=== PATIENT | female | born 1975 | race Caucasian/White ===

== ENCOUNTER 2017-05-16 09:11 | Inpatient (IN) ==
[2017-05-16] MEDS ORDERED: ONDANSETRON 4 MG/2 ML VIAL IV PRN (13:06)
[2017-05-16 13:30] LABS: ABG Base Excess -11.4 MMOL/L (-2.5-2.5); ABG HCO3 15.4 MMOL/L (20-26); ABG Oxygen Saturation 91.7 % (95-100); ABG PO2 89.4 MM HG (80-95); ABG TCO2 21.7 MMOL/L (23-27)
[2017-05-16 13:32] LABS: ABG PCO2 89.1 MM HG (35-48); ABG PH 7.005 (7.35-7.45)
[2017-05-16] MEDS ORDERED: NOREPINEPHRINE 4 MG/4 ML VIAL IV ONE ×2 (14:06→19:14)
[2017-05-16] MEDS ORDERED: methylPREDNISolone SOD SUC 40 MG/1 ML VIAL ONE (14:21)
[2017-05-16] MEDS ORDERED: NOREPINEPHRINE 16 MG in SODIUM CHLORIDE 0.9% 242 ML IV SCH (14:30)
[2017-05-16] MEDS ORDERED: NOREPINEPHRINE 8 MG in SODIUM CHLORIDE 0.9% 242 ML IV SCH (14:30)
[2017-05-16] MEDS: methylPREDNISolone SOD SUC 40 MG/1 ML VIAL IV SCH ×2 (14:44→22:52)
[2017-05-16] MEDS: SODIUM CHLORIDE 0.9% 1,000 ML IV SCH (14:47)
[2017-05-16] MEDS: PROPOFOL 1,000 MG/100 ML BOTTLE IV SCH ×4 (14:47→23:52)
[2017-05-16] MEDS: PHENYLEPHRINE DRIP 40 MG/250 ML PREMIX IV SCH (14:50)
[2017-05-16 14:53] LABS: Basophils # 0.1 10*3/uL (0.0-0.2); Basophils % 0.3 % (0.0-0.8); Eosinophils # 0.1 10*3/uL (0.0-0.87); Eosinophils % 0.4 % (0.00-10.9); Hematocrit 36.2 VOL% (35.7-47.0); Hemoglobin 11.2 GM/DL (12.0-16.0); Immature Granulocytes % 7.8 %; Immature Granulocytes Absolute 2.91 #; Lymphocytes # 1.6 10*3/uL (1.4-4.0); Lymphocytes % 4.3 % (21.3-54.2); Mean Corpuscular HGB Conc 30.9 GM/DL (32-36); Mean Corpuscular Hemoglobin 26 PG (27-34); Mean Corpuscular Volume 84.8 FL (87-102); Mean Platelet Volume 10.3 FL (9.6-12.0); Monocytes # 1.2 10*3/uL (0.11-0.8); Monocytes % 3.3 % (1.7-12.7); NRBC # 0.78 10*3/uL; Neutrophils # 31.2 10*3/uL (1.4-7.4); Neutrophils % 83.9 % (38.7-73.9); Platelet Count 468 T/CUMM (130-400); Red Blood Count 4.27 MC/CUMM (3.8-5.5); Red Cell Distribution Width 17.7 % (9.3-17.3); White Blood Count 37.1 T/CUMM (4-12)
[2017-05-16] MEDS: PANTOPRAZOLE 40 MG VIAL IV SCH (15:04)
[2017-05-16 15:07] LABS: ABG HCO3 17.1 MMOL/L (20-26); ABG Oxygen Saturation 86.8 % (95-100); ABG PCO2 58.3 MM HG (35-48); ABG PO2 62.9 MM HG (80-95); ABG TCO2 19.2 MMOL/L (23-27)
[2017-05-16 15:09] LABS: ABG PH 7.155 (7.35-7.45)
[2017-05-16] MEDS ORDERED: SODIUM BICARBONATE 50 MEQ/50 ML SYRINGE IV ONE ×2 (15:13→15:32)
[2017-05-16 15:17] LABS: Band Neutrophils 7 % (0-10); Lymphocytes 3 % (20-55); Metamyelocytes 4 %; Myelocytes 1 %; Nucleated Red Blood Cells 1 (0-5); Segmented Neutrophils 83 % (50-85)
[2017-05-16 15:22] LABS: Albumin 2.1 G/DL (3.4-5.0); Bilirubin,Direct 1.33 MG/DL (0.0-0.20); Bilirubin,Indirect 0.7 MG/DL (0.0-1.0); Bilirubin,Total 1.9 MG/DL (0.2-1.0); Calcium 7.4 MG/DL (8.5-10.1); Total Protein 5.9 G/DL (6.4-8.3)
[2017-05-16 15:23] LABS: Osmolality,Calculated 292.7 MOS/KG (273-304); Potassium 5.4 MMOL/L (3.5-5.1)
[2017-05-16 15:25] LABS: CKMB % 8.4 %
[2017-05-16 15:28] LABS: Thyroid Stimulating Hormone 2.52 uIU/ml (0.358-3.74)
[2017-05-16] MEDS ORDERED: SODIUM BICARB INJ 100 MEQ in DEXTROSE 5% 1,000 ML IV SCH (15:30)
[2017-05-16 15:32] LABS: Troponin I Only 0.497 NG/ML (0.00-0.045)
[2017-05-16 15:33] LABS: Burr Cells Few
[2017-05-16 15:35] LABS: Polychromasia 1+; Target Cells Slight
[2017-05-16 15:36] LABS: Platelet Estimate Increased; Schistocytes Few
[2017-05-16 15:37] LABS: Total Cells Counted 100
[2017-05-16 16:28] LABS: ABG Base Excess -5.6 MMOL/L (-2.5-2.5); ABG HCO3 19.6 MMOL/L (20-26); ABG Oxygen Saturation 89.6 % (95-100); ABG PCO2 56.1 MM HG (35-48); ABG PH 7.217 (7.35-7.45); ABG PO2 65.6 MM HG (80-95); ABG TCO2 21.1 MMOL/L (23-27)
[2017-05-16] MEDS: ENOXAPARIN 40 MG/0.4 ML SYRINGE SUBCUT SCH (16:55)
[2017-05-16] MEDS: PIPERACILLIN/TAZOBACTAM 3,375 MG in SODIUM CHLORIDE 0.9% 100 ML IV SCH ×2 (16:56→22:49)
[2017-05-16 17:17] LABS: % Iron Saturation 42.1 % (18-50)
[2017-05-16 17:43] LABS: Folate 20.3 NG/ML (5.4-24.0)
[2017-05-16] MEDS: VANCOMYCIN INJ 2,000 MG in SODIUM CHLORIDE 0.9% 500 ML IV SCH (17:49)
[2017-05-16] MEDS: SODIUM BICARB INJ 100 MEQ in DEXTROSE 5% NACL 0.45% 1,000 ML IV SCH (17:49)
[2017-05-16] MEDS ORDERED: LEVOFLOXACIN INJ 750 MG in PREMIX 1 EACH IV SCH (18:00)
[2017-05-16 18:28] LABS: ABG Base Excess -7.5 MMOL/L (-2.5-2.5); ABG HCO3 18.2 MMOL/L (20-26); ABG Oxygen Saturation 89.4 % (95-100); ABG PCO2 54.2 MM HG (35-48); ABG TCO2 19.5 MMOL/L (23-27)
[2017-05-16 18:39] LABS: ABG PH 7.197 (7.35-7.45)
[2017-05-16 19:37] LABS: Apearance,Urine CLOUDY (Clear); Bacteria,Urine Few /HPF (Few); Bilirubin,Urine Negative (Negative); Blood, Urine Large mg/dL (Negative); Glucose,Urine (UA) 50 mg/dL (Negative); Ketones,Urine Negative (Negative); Nitrite,Urine Negative (Negative); Protein,Urine 100 MG/DL; RBC,Urine 760 /HPF (0-4); Urine Color Amber (Yellow); Urine Specific Gravity 1.018 (1.001-1.035); Urine Urobilinogen < 2.0 EU/DL (0.2-1.0); WBC,Urine 16 /HPF (0-6)
[2017-05-16] MEDS: NOREPINEPHRINE 16 MG in SODIUM CHLORIDE 0.9% 234 ML IV SCH (19:59)
[2017-05-16] MEDS ORDERED: SODIUM BICARBONATE 50 MEQ/50 ML VIAL IV ONE (20:53)
[2017-05-16] MEDS ORDERED: OSELTAMIVIR 75 MG CAPSULE NG SCH (21:00)
[2017-05-16 22:25] LABS: CKMB % 10.2 %
[2017-05-16 22:29] LABS: Troponin I Only 0.599 NG/ML (0.00-0.045)
[2017-05-16 23:40] LABS: Allen Test Positive; Pt O2 Delivery Device Ventilator
[2017-05-17] MEDS: NOREPINEPHRINE 16 MG in SODIUM CHLORIDE 0.9% 234 ML IV SCH ×3 (00:08→14:30)
[2017-05-17 00:09] LABS: ABG Base Excess -4.1 MMOL/L (-2.5-2.5); ABG HCO3 23.3 MMOL/L (20-26); ABG PCO2 53.5 MM HG (35-48); ABG PH 7.257 (7.35-7.45); ABG PO2 45.3 MM HG (80-95); ABG TCO2 24.9 MMOL/L (23-27)
[2017-05-17] MEDS: fentaNYL INJ 1,250 MCG in SODIUM CHLORIDE 0.9% 225 ML IV SCH ×4 (01:11→20:08)
[2017-05-17] MEDS ORDERED: VECURONIUM 10 MG VIAL IV SCH (01:32)
[2017-05-17] MEDS: PROPOFOL 1,000 MG/100 ML BOTTLE IV SCH ×13 (01:34→23:14)
[2017-05-17] MEDS: DEXTROSE 5% NACL 0.9% 1,000 ML IV SCH ×2 (01:39→15:21)
[2017-05-17] MEDS ORDERED: GLUCAGON 1 MG VIAL IM PRN (01:42)
[2017-05-17] MEDS ORDERED: DEXTROSE 50% 25 GM/50 ML VIAL IV PRN (01:42)
[2017-05-17] MEDS: INSULIN REGULAR 100 UNIT/ML SUBCUT SCH ×4 (01:56→17:10)
[2017-05-17 04:05] LABS: ABG Base Excess -5.2 MMOL/L (-2.5-2.5); ABG PCO2 49.2 MM HG (35-48); ABG PO2 69.5 MM HG (80-95); ABG TCO2 20.4 MMOL/L (23-27); Allen Test Positive; Pt O2 Delivery Device Ventilator
[2017-05-17 04:18] LABS: Basophils # 0.1 10*3/uL (0.0-0.2); Basophils % 0.4 % (0.0-0.8); Hematocrit 32.1 VOL% (35.7-47.0); Hemoglobin 10.2 GM/DL (12.0-16.0); Immature Granulocytes % 6.8 %; Immature Granulocytes Absolute 1.77 #; Lymphocytes % 3.8 % (21.3-54.2); Mean Corpuscular HGB Conc 31.8 GM/DL (32-36); Mean Corpuscular Hemoglobin 26 PG (27-34); Mean Corpuscular Volume 81.7 FL (87-102); Mean Platelet Volume 10.6 FL (9.6-12.0); Monocytes # 0.7 10*3/uL (0.11-0.8); Monocytes % 2.8 % (1.7-12.7); NRBC # 0.43 10*3/uL; Neutrophils # 22.4 10*3/uL (1.4-7.4); Neutrophils % 86.2 % (38.7-73.9); Platelet Count 285 T/CUMM (130-400); Red Blood Count 3.93 MC/CUMM (3.8-5.5); Red Cell Distribution Width 17.6 % (9.3-17.3)
[2017-05-17 04:42] LABS: Bilirubin,Total 2.4 MG/DL (0.2-1.0); Calcium 7.2 MG/DL (8.5-10.1); Magnesium 2.1 MG/DL (1.8-2.4); Osmolality,Calculated 299.5 MOS/KG (273-304); Potassium 5.2 MMOL/L (3.5-5.1); Total Protein 5.6 G/DL (6.4-8.3)
[2017-05-17] MEDS: SODIUM BICARB INJ 100 MEQ in DEXTROSE 5% NACL 0.45% 1,000 ML IV SCH ×3 (05:14→16:49)
[2017-05-17 05:22] LABS: Band Neutrophils 4 % (0-10); Lymphocytes 9 % (20-55); Nucleated Red Blood Cells 1 (0-5); Platelet Estimate Adequate; Segmented Neutrophils 84 % (50-85); Total Cells Counted 100
[2017-05-17 05:23] LABS: Giant Platelets Few; Hypochromasia 1+; Ovalocytes Slight
[2017-05-17 05:35] LABS: HIV Antigen/Antibody Result Nonreactive (Nonreactive)
[2017-05-17] MEDS: methylPREDNISolone SOD SUC 40 MG/1 ML VIAL IV SCH ×3 (05:37→22:03)
[2017-05-17] MEDS: VANCOMYCIN INJ 2,000 MG in SODIUM CHLORIDE 0.9% 500 ML IV SCH (05:37)
[2017-05-17 05:38] LABS: Hepatitis A Ab IgM Quant 0.08 Index; Hepatitis A Ab IgM Result Negative (Negative); Hepatitis B Core IgM Quant 0.14 Index; Hepatitis B Core IgM Result Negative (Negative); Hepatitis B Surface Ag Quant < 0.10 Index; Hepatitis B Surface Ag Result Negative (Negative); Hepatitis C Virus Ab Quant 0.11 Index; Hepatitis C Virus Ab Result Negative (Negative)
[2017-05-17] MEDS: PIPERACILLIN/TAZOBACTAM 3,375 MG in SODIUM CHLORIDE 0.9% 100 ML IV SCH ×3 (06:58→22:04)
[2017-05-17] MEDS: PHENYLEPHRINE DRIP 40 MG/250 ML PREMIX IV SCH ×2 (10:20→19:30)
[2017-05-17] MEDS: OSELTAMIVIR 6 MG/ML 60 ML/BOTTLE NG SCH ×2 (12:09→23:02)
[2017-05-17] MEDS: ZINC OXIDE PASTE 113 GM TUBE TOP SCH ×2 (13:14→22:05)
[2017-05-17] MEDS: VECURONIUM 10 MG VIAL IV PRN (15:21)
[2017-05-17] MEDS: PANTOPRAZOLE 40 MG VIAL IV SCH (16:38)
[2017-05-17] MEDS: ENOXAPARIN 40 MG/0.4 ML SYRINGE SUBCUT SCH (16:39)
[2017-05-18] MEDS: INSULIN REGULAR 100 UNIT/ML SUBCUT SCH ×5 (01:09→17:34)
[2017-05-18] MEDS: PROPOFOL 1,000 MG/100 ML BOTTLE IV SCH ×10 (01:26→23:02)
[2017-05-18] MEDS: NOREPINEPHRINE 16 MG in SODIUM CHLORIDE 0.9% 234 ML IV SCH ×2 (01:56→22:43)
[2017-05-18] MEDS: fentaNYL INJ 1,250 MCG in SODIUM CHLORIDE 0.9% 225 ML IV SCH ×2 (02:23→04:32)
[2017-05-18] MEDS: SODIUM BICARB INJ 100 MEQ in DEXTROSE 5% NACL 0.45% 1,000 ML IV SCH ×3 (02:36→14:04)
[2017-05-18 02:41] LABS: ABG Base Excess -4.1 MMOL/L (-2.5-2.5); ABG Oxygen Saturation 90.7 % (95-100); ABG PCO2 51.9 MM HG (35-48); ABG PH 7.264 (7.35-7.45); ABG PO2 68.4 MM HG (80-95); ABG TCO2 24.6 MMOL/L (23-27)
[2017-05-18] MEDS: PHENYLEPHRINE DRIP 40 MG/250 ML PREMIX IV SCH ×2 (04:14→14:05)
[2017-05-18] MEDS: DEXTROSE 5% NACL 0.9% 1,000 ML IV SCH ×3 (04:29→17:34)
[2017-05-18 04:48] LABS: Basophils % 0.2 % (0.0-0.8); Eosinophils % 0.1 % (0.00-10.9); Hematocrit 28.2 VOL% (35.7-47.0); Immature Granulocytes % 7.8 %; Immature Granulocytes Absolute 1.16 #; Lymphocytes # 0.9 10*3/uL (1.4-4.0); Lymphocytes % 5.9 % (21.3-54.2); Mean Corpuscular HGB Conc 31.9 GM/DL (32-36); Mean Corpuscular Hemoglobin 26 PG (27-34); Mean Corpuscular Volume 81.7 FL (87-102); Mean Platelet Volume 11.5 FL (9.6-12.0); Monocytes # 0.7 10*3/uL (0.11-0.8); Monocytes % 4.4 % (1.7-12.7); NRBC # 0.31 10*3/uL; Neutrophils # 12.1 10*3/uL (1.4-7.4); Neutrophils % 81.6 % (38.7-73.9); Platelet Count 134 T/CUMM (130-400); Red Blood Count 3.45 MC/CUMM (3.8-5.5); White Blood Count 14.9 T/CUMM (4-12)
[2017-05-18 04:55] LABS: Lactic Acid 2.4 MMOL/L (0.4-2.0)
[2017-05-18 05:09] LABS: Albumin 1.7 G/DL (3.4-5.0); Bilirubin,Direct 1.17 MG/DL (0.0-0.20); Bilirubin,Indirect 0.6 MG/DL (0.0-1.0); Bilirubin,Total 1.8 MG/DL (0.2-1.0); Calcium 6.5 MG/DL (8.5-10.1); Magnesium 2.2 MG/DL (1.8-2.4); Osmolality,Calculated 309.5 MOS/KG (273-304); Total Protein 5.1 G/DL (6.4-8.3)
[2017-05-18 05:30] LABS: Band Neutrophils 3 % (0-10); Giant Platelets Few; Hypochromasia 1+; Lymphocytes 4 % (20-55); Microcytosis Slight; Myelocytes 1 %; Nucleated Red Blood Cells 2 (0-5); Ovalocytes Slight; Platelet Estimate Normal; Segmented Neutrophils 89 % (50-85); Total Cells Counted 100
[2017-05-18] MEDS: PIPERACILLIN/TAZOBACTAM 3,375 MG in SODIUM CHLORIDE 0.9% 100 ML IV SCH ×3 (05:46→22:43)
[2017-05-18] MEDS: methylPREDNISolone SOD SUC 40 MG/1 ML VIAL IV SCH ×3 (05:47→22:43)
[2017-05-18] MEDS: VECURONIUM 10 MG VIAL IV PRN (07:27)
[2017-05-18] MEDS ORDERED: VANCOMYCIN INJ 2,000 MG in SODIUM CHLORIDE 0.9% 500 ML IV SCH (08:00)
[2017-05-18] MEDS: SODIUM CHLORIDE 0.9% 1,000 ML IV SCH (08:13)
[2017-05-18] MEDS: ZINC OXIDE PASTE 113 GM TUBE TOP SCH ×2 (09:28→20:34)
[2017-05-18] MEDS: OSELTAMIVIR 6 MG/ML 60 ML/BOTTLE NG SCH (09:30)
[2017-05-18] MEDS ORDERED: INSULIN GLARGINE 100 UNIT/ML SUBCUT SCH (13:00)
[2017-05-18] MEDS: PANTOPRAZOLE 40 MG VIAL IV SCH (14:05)
[2017-05-18] MEDS: ENOXAPARIN 30 MG/0.3 ML SYRINGE SUBCUT SCH (16:58)
[2017-05-18] MEDS ORDERED: SODIUM CHLORIDE 0.9% 1,000 ML IV SCH (17:30)
[2017-05-18] MEDS: LEVOFLOXACIN INJ 750 MG in PREMIX 1 EACH IV SCH (17:34)
[2017-05-19] MEDS: INSULIN REGULAR 100 UNIT/ML SUBCUT SCH ×4 (00:20→18:03)
[2017-05-19] MEDS: VECURONIUM 10 MG VIAL IV PRN ×3 (00:40→20:16)
[2017-05-19] MEDS: fentaNYL INJ 1,250 MCG in SODIUM CHLORIDE 0.9% 225 ML IV SCH (00:44)
[2017-05-19] MEDS: PROPOFOL 1,000 MG/100 ML BOTTLE IV SCH ×8 (01:49→19:55)
[2017-05-19] MEDS: SODIUM BICARB INJ 100 MEQ in DEXTROSE 5% NACL 0.45% 1,000 ML IV SCH ×3 (02:24→14:15)
[2017-05-19 02:41] LABS: ABG Base Excess -5.7 MMOL/L (-2.5-2.5); ABG HCO3 19.6 MMOL/L (20-26); ABG Oxygen Saturation 91.4 % (95-100); ABG PH 7.211 (7.35-7.45); ABG PO2 74.6 MM HG (80-95); ABG TCO2 21.2 MMOL/L (23-27); Pt O2 Delivery Device Ventilator
[2017-05-19 05:10] LABS: Basophils % 0.2 % (0.0-0.8); Eosinophils % 0.2 % (0.00-10.9); Hematocrit 29.5 VOL% (35.7-47.0); Hemoglobin 9.1 GM/DL (12.0-16.0); Immature Granulocytes % 8.5 %; Immature Granulocytes Absolute 0.72 #; Lymphocytes # 0.5 10*3/uL (1.4-4.0); Lymphocytes % 6.4 % (21.3-54.2); Mean Corpuscular HGB Conc 30.8 GM/DL (32-36); Mean Corpuscular Hemoglobin 26 PG (27-34); Mean Corpuscular Volume 84.5 FL (87-102); Mean Platelet Volume 11.2 FL (9.6-12.0); Monocytes # 0.4 10*3/uL (0.11-0.8); Monocytes % 4.9 % (1.7-12.7); NRBC # 0.15 10*3/uL; Neutrophils # 6.8 10*3/uL (1.4-7.4); Neutrophils % 79.8 % (38.7-73.9); Platelet Count 118 T/CUMM (130-400); Red Blood Count 3.49 MC/CUMM (3.8-5.5); Red Cell Distribution Width 17.9 % (9.3-17.3); White Blood Count 8.5 T/CUMM (4-12)
[2017-05-19 05:37] LABS: Albumin 1.7 G/DL (3.4-5.0); Bilirubin,Direct 0.62 MG/DL (0.0-0.20); Bilirubin,Indirect 0.6 MG/DL (0.0-1.0); Bilirubin,Total 1.2 MG/DL (0.2-1.0); Calcium 6.5 MG/DL (8.5-10.1); Magnesium 2.2 MG/DL (1.8-2.4); Osmolality,Calculated 307.8 MOS/KG (273-304); Potassium 5.8 MMOL/L (3.5-5.1); Total Protein 5.2 G/DL (6.4-8.3)
[2017-05-19 05:42] LABS: Anisocytosis 1+; Band Neutrophils 3 % (0-10); Lymphocytes 6 % (20-55); Metamyelocytes 1 %; Myelocytes 1 %; Nucleated Red Blood Cells 3 (0-5); Segmented Neutrophils 89 % (50-85); Total Cells Counted 100
[2017-05-19 05:43] LABS: Hypochromasia 1+; Platelet Estimate Adequate
[2017-05-19] MEDS: DEXTROSE 5% NACL 0.9% 1,000 ML IV SCH ×3 (05:52→18:42)
[2017-05-19] MEDS: methylPREDNISolone SOD SUC 40 MG/1 ML VIAL IV SCH ×3 (06:22→22:37)
[2017-05-19] MEDS: PIPERACILLIN/TAZOBACTAM 3,375 MG in SODIUM CHLORIDE 0.9% 100 ML IV SCH ×3 (06:23→22:25)
[2017-05-19] MEDS: ZINC OXIDE PASTE 113 GM TUBE TOP SCH ×2 (08:23→20:15)
[2017-05-19] MEDS ORDERED: DEXTROSE 50% 25 GM/50 ML VIAL IV PRN (08:26)
[2017-05-19] MEDS ORDERED: GLUCAGON 1 MG VIAL IM PRN (08:26)
[2017-05-19] MEDS: OSELTAMIVIR 6 MG/ML 60 ML/BOTTLE NG SCH (08:29)
[2017-05-19] MEDS ORDERED: ALBUMIN 25% 25 GM in PREMIX 1 EACH IV ONE (09:21)
[2017-05-19] MEDS ORDERED: FUROSEMIDE 40 MG/4 ML VIAL ONE (09:48)
[2017-05-19] MEDS: FUROSEMIDE 40 MG/4 ML VIAL IV SCH ×2 (09:57→17:58)
[2017-05-19] MEDS ORDERED: CALCIUM GLUCONATE 1,000 MG in SODIUM CHLORIDE 0.9% 100 ML IV ONE (10:30)
[2017-05-19] MEDS: PANTOPRAZOLE 40 MG VIAL IV SCH (13:41)
[2017-05-19] MEDS: PHENYLEPHRINE DRIP 40 MG/250 ML PREMIX IV SCH (13:41)
[2017-05-19 14:44] LABS: Albumin 2.2 G/DL (3.4-5.0); Bilirubin,Total 1.4 MG/DL (0.2-1.0); Calcium 6.8 MG/DL (8.5-10.1); Osmolality,Calculated 310.7 MOS/KG (273-304); Potassium 4.9 MMOL/L (3.5-5.1); Total Protein 5.5 G/DL (6.4-8.3)
[2017-05-19] MEDS ORDERED: FUROSEMIDE 40 MG/4 ML VIAL IV ONE (14:51)
[2017-05-19] MEDS ORDERED: CLINDAMYCIN INJ 900 MG in PREMIX 1 EACH IV ONE (15:28)
[2017-05-19 15:51] LABS: Fibrinogen Quant Value 353 MG% (200-400); INR 1.3; PT Patient Result 13.1 SECS; Partial Thromboplastin Time 29.9 SECS (0-40)
[2017-05-19 16:28] LABS: INR 1.3; PT Patient Result 13.1 SECS
[2017-05-19] MEDS: ENOXAPARIN 30 MG/0.3 ML SYRINGE SUBCUT SCH (17:14)
[2017-05-19] MEDS: NOREPINEPHRINE 16 MG in SODIUM CHLORIDE 0.9% 234 ML IV SCH (23:54)
[2017-05-20] MEDS: SODIUM BICARB INJ 100 MEQ in DEXTROSE 5% NACL 0.45% 1,000 ML IV SCH ×4 (00:13→11:13)
[2017-05-20] MEDS: INSULIN REGULAR 100 UNIT/ML SUBCUT SCH ×5 (00:13→23:59)
[2017-05-20] MEDS: fentaNYL INJ 1,250 MCG in SODIUM CHLORIDE 0.9% 225 ML IV SCH (00:14)
[2017-05-20] MEDS: PROPOFOL 1,000 MG/100 ML BOTTLE IV SCH ×7 (03:05→22:00)
[2017-05-20 04:33] LABS: ABG Base Excess -5.7 MMOL/L (-2.5-2.5); ABG HCO3 19.7 MMOL/L (20-26); ABG Oxygen Saturation 93.4 % (95-100); ABG PO2 83.7 MM HG (80-95); ABG TCO2 21.9 MMOL/L (23-27); Allen Test Positive; Pt O2 Delivery Device Ventilator
[2017-05-20] MEDS ORDERED: LIDOCAINE 1%/EPI INJ 20 ML VIAL ONE (06:25)
[2017-05-20] MEDS ORDERED: HEPARIN 5,000 UNIT/1 ML VIAL ONE (06:25)
[2017-05-20] MEDS ORDERED: BUPIVACAINE 0.25% 50 ML VIAL ONE (06:25)
[2017-05-20] MEDS: methylPREDNISolone SOD SUC 40 MG/1 ML VIAL IV SCH ×3 (06:28→21:30)
[2017-05-20] MEDS: LEVOTHYROXINE 100 MCG VIAL IV SCH (06:29)
[2017-05-20] MEDS: PIPERACILLIN/TAZOBACTAM 3,375 MG in SODIUM CHLORIDE 0.9% 100 ML IV SCH ×3 (06:46→22:12)
[2017-05-20] MEDS ORDERED: SODIUM BICARBONATE 50 MEQ/50 ML SYRINGE IV ONE (06:58)
[2017-05-20] MEDS: FUROSEMIDE 40 MG/4 ML VIAL IV SCH ×2 (07:50→15:44)
[2017-05-20] MEDS: VECURONIUM 10 MG VIAL IV PRN ×3 (07:50→18:14)
[2017-05-20] MEDS: DEXTROSE 5% NACL 0.9% 1,000 ML IV SCH ×3 (08:00→21:20)
[2017-05-20] MEDS: ALBUTEROL 2.5 MG/3 ML NEB RESP TX PRN ×2 (08:07→16:39)
[2017-05-20] MEDS: INSULIN GLARGINE 100 UNIT/ML SUBCUT SCH ×2 (10:48→21:08)
[2017-05-20] MEDS: ZINC OXIDE PASTE 113 GM TUBE TOP SCH ×2 (10:48→21:08)
[2017-05-20] MEDS: HEPARIN 5,000 UNIT/1 ML VIAL SUBCUT SCH ×2 (10:48→21:06)
[2017-05-20] MEDS: OSELTAMIVIR 6 MG/ML 60 ML/BOTTLE NG SCH (10:48)
[2017-05-20 11:26] LABS: Albumin 1.9 G/DL (3.4-5.0); Calcium 6.3 MG/DL (8.5-10.1); Osmolality,Calculated 314.4 MOS/KG (273-304); Phosphorous 9.1 MG/DL (2.5-4.9)
[2017-05-20 11:59] LABS: ABG Base Excess -3.1 MMOL/L (-2.5-2.5); ABG HCO3 24.6 MMOL/L (20-26); ABG Oxygen Saturation 98.4 % (95-100); ABG PCO2 58.9 MM HG (35-48); ABG PH 7.239 (7.35-7.45); ABG PO2 190.4 MM HG (80-95); ABG TCO2 26.4 MMOL/L (23-27); Allen Test Positive; Pt O2 Delivery Device Ventilator
[2017-05-20] MEDS ORDERED: VANCOMYCIN INJ 1,500 MG in SODIUM CHLORIDE 0.9% 500 ML IV PRN (12:25)
[2017-05-20] MEDS: PANTOPRAZOLE 40 MG VIAL IV SCH (14:00)
[2017-05-20] MEDS ORDERED: HEPARIN 10,000 UNIT/10 ML VIAL IV PRN (14:09)
[2017-05-20] MEDS: LEVOFLOXACIN INJ 750 MG in PREMIX 1 EACH IV SCH (17:12)
[2017-05-20] MEDS ORDERED: SEVOFLURANE 1 UNIT/15 MINUTE INH ONE (19:33)
[2017-05-20] MEDS ORDERED: MIDAZOLAM 2 MG/2 ML VIAL ONE (19:33)
[2017-05-20] MEDS ORDERED: ROCURONIUM 100 MG/10 ML VIAL IV ONE (19:33)
[2017-05-20] MEDS ORDERED: VANCOMYCIN INJ 1,500 MG in SODIUM CHLORIDE 0.9% 500 ML IV ONE (21:00)
[2017-05-21] MEDS: PROPOFOL 1,000 MG/100 ML BOTTLE IV SCH ×8 (00:51→23:37)
[2017-05-21 02:51] LABS: ABG HCO3 23.5 MMOL/L (20-26); ABG Oxygen Saturation 96.7 % (95-100); ABG PCO2 57.5 MM HG (35-48); ABG PH 7.273 (7.35-7.45); ABG TCO2 24.8 MMOL/L (23-27); Allen Test Positive; Pt O2 Delivery Device Ventilator
[2017-05-21 05:00] LABS: Basophils % 0.1 % (0.0-0.8); Eosinophils % 0.1 % (0.00-10.9); Hematocrit 26.4 VOL% (35.7-47.0); Hemoglobin 8.5 GM/DL (12.0-16.0); Immature Granulocytes % 2.3 %; Immature Granulocytes Absolute 0.21 #; Lymphocytes # 0.3 10*3/uL (1.4-4.0); Lymphocytes % 2.8 % (21.3-54.2); Mean Corpuscular HGB Conc 32.2 GM/DL (32-36); Mean Corpuscular Hemoglobin 26 PG (27-34); Mean Platelet Volume 11.7 FL (9.6-12.0); Monocytes # 0.3 10*3/uL (0.11-0.8); Monocytes % 3.1 % (1.7-12.7); NRBC # 0.07 10*3/uL; Neutrophils # 8.5 10*3/uL (1.4-7.4); Neutrophils % 91.6 % (38.7-73.9); Platelet Count 81 T/CUMM (130-400); Red Blood Count 3.26 MC/CUMM (3.8-5.5); Red Cell Distribution Width 17.6 % (9.3-17.3); White Blood Count 9.3 T/CUMM (4-12)
[2017-05-21 05:14] LABS: Albumin 1.7 G/DL (3.4-5.0); Calcium 6.6 MG/DL (8.5-10.1); Osmolality,Calculated 302.4 MOS/KG (273-304)
[2017-05-21 05:37] LABS: Band Neutrophils 5 % (0-10); Giant Platelets Few; Hypochromasia 1+; Lymphocytes 2 % (20-55); Nucleated Red Blood Cells 1 (0-5); Ovalocytes Few; Platelet Estimate Decreased; Segmented Neutrophils 93 % (50-85); Total Cells Counted 100
[2017-05-21] MEDS: INSULIN REGULAR 100 UNIT/ML SUBCUT SCH ×3 (06:27→17:56)
[2017-05-21] MEDS: PIPERACILLIN/TAZOBACTAM 3,375 MG in SODIUM CHLORIDE 0.9% 100 ML IV SCH (06:28)
[2017-05-21] MEDS: methylPREDNISolone SOD SUC 40 MG/1 ML VIAL IV SCH ×3 (06:28→21:40)
[2017-05-21] MEDS: LEVOTHYROXINE 100 MCG VIAL IV SCH (06:28)
[2017-05-21] MEDS: INSULIN GLARGINE 100 UNIT/ML SUBCUT SCH ×2 (09:01→21:40)
[2017-05-21] MEDS: VECURONIUM 10 MG VIAL IV PRN ×2 (09:01→19:15)
[2017-05-21] MEDS: ZINC OXIDE PASTE 113 GM TUBE TOP SCH ×2 (09:02→21:40)
[2017-05-21] MEDS: OSELTAMIVIR 6 MG/ML 60 ML/BOTTLE NG SCH (09:02)
[2017-05-21] MEDS: FUROSEMIDE 40 MG/4 ML VIAL IV SCH ×2 (09:12→17:53)
[2017-05-21] MEDS: HEPARIN 5,000 UNIT/1 ML VIAL SUBCUT SCH ×2 (09:13→21:40)
[2017-05-21 10:18] LABS: Hepatitis A Ab IgM Quant 0.04 Index; Hepatitis A Ab IgM Result Negative (Negative)
[2017-05-21 10:19] LABS: Hepatitis B Core IgM Quant 0.14 Index; Hepatitis B Core IgM Result Negative (Negative); Hepatitis C Virus Ab Quant 0.12 Index; Hepatitis C Virus Ab Result Negative (Negative)
[2017-05-21] MEDS: DEXTROSE 5% NACL 0.9% 1,000 ML IV SCH (10:30)
[2017-05-21 10:59] LABS: Hepatitis B Surface Ag Quant < 0.10 Index; Hepatitis B Surface Ag Result Negative (Negative)
[2017-05-21] MEDS: PANTOPRAZOLE 40 MG VIAL IV SCH (15:56)
[2017-05-21] MEDS ORDERED: VANCOMYCIN INJ 1,500 MG in SODIUM CHLORIDE 0.9% 500 ML IV ONE (16:00)
[2017-05-22] MEDS: INSULIN REGULAR 100 UNIT/ML SUBCUT SCH ×5 (00:30→23:33)
[2017-05-22] MEDS: DEXTROSE 5% NACL 0.9% 1,000 ML IV SCH ×2 (00:46→14:06)
[2017-05-22] MEDS: VECURONIUM 10 MG VIAL IV PRN ×3 (00:55→23:25)
[2017-05-22] MEDS: PROPOFOL 1,000 MG/100 ML BOTTLE IV SCH ×7 (03:00→22:45)
[2017-05-22 04:04] LABS: ABG Base Excess -1.4 MMOL/L (-2.5-2.5); ABG HCO3 23.3 MMOL/L (20-26); ABG Oxygen Saturation 98.9 % (95-100); ABG PCO2 55.5 MM HG (35-48); ABG PH 7.276 (7.35-7.45); ABG TCO2 24.4 MMOL/L (23-27)
[2017-05-22] MEDS: ALBUTEROL 2.5 MG/3 ML NEB RESP TX PRN (05:18)
[2017-05-22 05:35] LABS: Basophils % 0.1 % (0.0-0.8); Eosinophils % 0.2 % (0.00-10.9); Hematocrit 28.9 VOL% (35.7-47.0); Hemoglobin 9.2 GM/DL (12.0-16.0); Immature Granulocytes % 2.8 %; Immature Granulocytes Absolute 0.38 #; Lymphocytes # 0.3 10*3/uL (1.4-4.0); Lymphocytes % 2.5 % (21.3-54.2); Mean Corpuscular HGB Conc 31.8 GM/DL (32-36); Mean Corpuscular Hemoglobin 26 PG (27-34); Mean Corpuscular Volume 81.4 FL (87-102); Mean Platelet Volume 12.6 FL (9.6-12.0); Monocytes # 0.6 10*3/uL (0.11-0.8); Monocytes % 4.5 % (1.7-12.7); NRBC # 0.07 10*3/uL; Neutrophils # 12.1 10*3/uL (1.4-7.4); Neutrophils % 89.9 % (38.7-73.9); Platelet Count 82 T/CUMM (130-400); Red Blood Count 3.55 MC/CUMM (3.8-5.5); Red Cell Distribution Width 18.5 % (9.3-17.3); White Blood Count 13.5 T/CUMM (4-12)
[2017-05-22 06:04] LABS: Band Neutrophils 8 % (0-10); Hypochromasia 1+; Lymphocytes 7 % (20-55); Nucleated Red Blood Cells 1 (0-5); Segmented Neutrophils 81 % (50-85); Total Cells Counted 100
[2017-05-22 06:05] LABS: Microcytosis 1+; Platelet Estimate Decreased
[2017-05-22 06:21] LABS: Albumin 1.8 G/DL (3.4-5.0); Calcium 7.4 MG/DL (8.5-10.1); Osmolality,Calculated 294.7 MOS/KG (273-304); Phosphorous 8.2 MG/DL (2.5-4.9); Potassium 4.9 MMOL/L (3.5-5.1)
[2017-05-22 06:23] LABS: Albumin 1.7 G/DL (3.4-5.0); Bilirubin,Direct 0.93 MG/DL (0.0-0.20); Bilirubin,Indirect 0.7 MG/DL (0.0-1.0); Bilirubin,Total 1.6 MG/DL (0.2-1.0); Total Protein 5.1 G/DL (6.4-8.3)
[2017-05-22] MEDS: LEVOTHYROXINE 100 MCG VIAL IV SCH (06:26)
[2017-05-22] MEDS: methylPREDNISolone SOD SUC 40 MG/1 ML VIAL IV SCH ×3 (06:26→21:52)
[2017-05-22] MEDS: HEPARIN 5,000 UNIT/1 ML VIAL SUBCUT SCH ×2 (09:57→21:52)
[2017-05-22] MEDS: FUROSEMIDE 40 MG/4 ML VIAL IV SCH ×2 (09:57→15:37)
[2017-05-22] MEDS: INSULIN GLARGINE 100 UNIT/ML SUBCUT SCH ×2 (09:57→21:52)
[2017-05-22] MEDS ORDERED: ALBUMIN 25% 25 GM in PREMIX 1 EACH IV ONE (10:00)
[2017-05-22] MEDS: ZINC OXIDE PASTE 113 GM TUBE TOP SCH ×2 (10:45→21:52)
[2017-05-22] MEDS: PHENYLEPHRINE DRIP 40 MG/250 ML PREMIX IV SCH ×2 (11:00→15:24)
[2017-05-22] MEDS: PANTOPRAZOLE 40 MG VIAL IV SCH (15:37)
[2017-05-22] MEDS: LEVOFLOXACIN INJ 750 MG in PREMIX 1 EACH IV SCH (17:12)
[2017-05-23] MEDS: PROPOFOL 1,000 MG/100 ML BOTTLE IV SCH ×11 (01:30→23:26)
[2017-05-23] MEDS: VECURONIUM 10 MG VIAL IV PRN ×2 (03:35→15:17)
[2017-05-23 04:18] LABS: ABG HCO3 25.1 MMOL/L (20-26); ABG Oxygen Saturation 93.1 % (95-100); ABG PCO2 48.7 MM HG (35-48); ABG PO2 75.2 MM HG (80-95); ABG TCO2 26.6 MMOL/L (23-27); Allen Test Positive; Pt O2 Delivery Device Ventilator
[2017-05-23] MEDS: DEXTROSE 5% NACL 0.9% 1,000 ML IV SCH ×2 (04:43→18:22)
[2017-05-23 05:23] LABS: Basophils % 0.2 % (0.0-0.8); Eosinophils % 0.1 % (0.00-10.9); Hematocrit 27.4 VOL% (35.7-47.0); Hemoglobin 8.8 GM/DL (12.0-16.0); Immature Granulocytes % 4.1 %; Immature Granulocytes Absolute 0.58 #; Lymphocytes # 0.5 10*3/uL (1.4-4.0); Lymphocytes % 3.8 % (21.3-54.2); Mean Corpuscular HGB Conc 32.1 GM/DL (32-36); Mean Corpuscular Hemoglobin 26 PG (27-34); Mean Corpuscular Volume 79.9 FL (87-102); Mean Platelet Volume 12.6 FL (9.6-12.0); Monocytes # 0.6 10*3/uL (0.11-0.8); Monocytes % 3.9 % (1.7-12.7); NRBC # 0.03 10*3/uL; Neutrophils # 12.5 10*3/uL (1.4-7.4); Neutrophils % 87.9 % (38.7-73.9); Platelet Count 55 T/CUMM (130-400); Red Blood Count 3.43 MC/CUMM (3.8-5.5); Red Cell Distribution Width 18.5 % (9.3-17.3); White Blood Count 14.2 T/CUMM (4-12)
[2017-05-23] MEDS: INSULIN REGULAR 100 UNIT/ML SUBCUT SCH ×3 (05:24→18:55)
[2017-05-23 05:47] LABS: Calcium 7.7 MG/DL (8.5-10.1); Phosphorous 7.6 MG/DL (2.5-4.9); Potassium 4.4 MMOL/L (3.5-5.1)
[2017-05-23 06:13] LABS: Band Neutrophils 5 % (0-10); Hypochromasia 1+; Lymphocytes 5 % (20-55); Microcytosis 2+; Nucleated Red Blood Cells 1 (0-5); Polychromasia Slight; Segmented Neutrophils 83 % (50-85); Total Cells Counted 100
[2017-05-23 06:15] LABS: Platelet Estimate Decreased
[2017-05-23] MEDS: methylPREDNISolone SOD SUC 40 MG/1 ML VIAL IV SCH ×3 (06:29→21:45)
[2017-05-23] MEDS: LEVOTHYROXINE 100 MCG VIAL IV SCH (06:29)
[2017-05-23] MEDS: INSULIN GLARGINE 100 UNIT/ML SUBCUT SCH ×2 (08:23→22:30)
[2017-05-23] MEDS: HEPARIN 5,000 UNIT/1 ML VIAL SUBCUT SCH ×2 (08:23→23:17)
[2017-05-23] MEDS: FUROSEMIDE 40 MG/4 ML VIAL IV SCH ×2 (08:23→15:54)
[2017-05-23] MEDS: ZINC OXIDE PASTE 113 GM TUBE TOP SCH ×2 (09:42→23:27)
[2017-05-23] MEDS ORDERED: VANCOMYCIN INJ 1,000 MG in SODIUM CHLORIDE 0.9% 250 ML IV PRN (14:30)
[2017-05-23] MEDS: PANTOPRAZOLE 40 MG VIAL IV SCH (14:39)
[2017-05-23] MEDS: PHENYLEPHRINE DRIP 40 MG/250 ML PREMIX IV SCH (14:40)
[2017-05-23] MEDS ORDERED: VANCOMYCIN INJ 1,000 MG in SODIUM CHLORIDE 0.9% 250 ML IV ONE (17:00)
[2017-05-24] MEDS: PROPOFOL 1,000 MG/100 ML BOTTLE IV SCH ×15 (00:44→22:12)
[2017-05-24] MEDS: INSULIN REGULAR 100 UNIT/ML SUBCUT SCH ×4 (01:12→18:51)
[2017-05-24 02:54] LABS: ABG Base Excess -2.8 MMOL/L (-2.5-2.5); ABG HCO3 22.7 MMOL/L (20-26); ABG Oxygen Saturation 98.7 % (95-100); ABG PCO2 42.2 MM HG (35-48); ABG PH 7.349 (7.35-7.45); ABG PO2 175.7 MM HG (80-95); Allen Test Positive; Pt O2 Delivery Device Ventilator
[2017-05-24 04:58] LABS: Calcium 7.6 MG/DL (8.5-10.1); Osmolality,Calculated 284.1 MOS/KG (273-304); Potassium 4.2 MMOL/L (3.5-5.1)
[2017-05-24 05:10] LABS: Basophils % 0.1 % (0.0-0.8); Eosinophils % 0.5 % (0.00-10.9); Hematocrit 24.7 VOL% (35.7-47.0); Immature Granulocytes % 6.1 %; Immature Granulocytes Absolute 0.52 #; Lymphocytes # 0.5 10*3/uL (1.4-4.0); Lymphocytes % 5.4 % (21.3-54.2); Mean Corpuscular HGB Conc 32.4 GM/DL (32-36); Mean Corpuscular Hemoglobin 26 PG (27-34); Mean Corpuscular Volume 80.2 FL (87-102); Monocytes # 0.4 10*3/uL (0.11-0.8); Monocytes % 4.8 % (1.7-12.7); NRBC # 0.03 10*3/uL; Neutrophils # 7.1 10*3/uL (1.4-7.4); Neutrophils % 83.1 % (38.7-73.9); Platelet Count 36 T/CUMM (130-400); Red Blood Count 3.08 MC/CUMM (3.8-5.5); Red Cell Distribution Width 17.9 % (9.3-17.3); White Blood Count 8.5 T/CUMM (4-12)
[2017-05-24] MEDS: LEVOTHYROXINE 100 MCG VIAL IV SCH (06:02)
[2017-05-24] MEDS: methylPREDNISolone SOD SUC 40 MG/1 ML VIAL IV SCH ×3 (06:04→21:32)
[2017-05-24 06:25] LABS: Band Neutrophils 19 % (0-10); Hypochromasia 1+; Lymphocytes 4 % (20-55); Macrocytosis 1+; Myelocytes 2 %; Nucleated Red Blood Cells 1 (0-5); Platelet Estimate Decreased; Polychromasia Slight; Segmented Neutrophils 70 % (50-85); Total Cells Counted 100
[2017-05-24] MEDS: DEXTROSE 5% NACL 0.9% 1,000 ML IV SCH (07:34)
[2017-05-24] MEDS: VECURONIUM 10 MG VIAL IV PRN ×3 (07:43→15:30)
[2017-05-24] MEDS: INSULIN GLARGINE 100 UNIT/ML SUBCUT SCH ×2 (09:44→20:27)
[2017-05-24] MEDS: ZINC OXIDE PASTE 113 GM TUBE TOP SCH (09:44)
[2017-05-24] MEDS: FUROSEMIDE 40 MG/4 ML VIAL IV SCH ×2 (09:55→15:15)
[2017-05-24 10:55] LABS: Albumin 1.7 G/DL (3.4-5.0); Bilirubin,Direct 0.41 MG/DL (0.0-0.20); Bilirubin,Indirect 0.3 MG/DL (0.0-1.0); Bilirubin,Total 0.7 MG/DL (0.2-1.0); Total Protein 4.7 G/DL (6.4-8.3)
[2017-05-24 13:06] LABS: INR 1.1; PT Patient Result 11.5 SECS; Partial Thromboplastin Time 30.5 SECS (0-40)
[2017-05-24] MEDS: PANTOPRAZOLE 40 MG VIAL IV SCH (14:57)
[2017-05-24] MEDS: PHENYLEPHRINE DRIP 40 MG/250 ML PREMIX IV SCH (15:14)
[2017-05-24] MEDS ORDERED: VANCOMYCIN INJ 1,000 MG in SODIUM CHLORIDE 0.9% 250 ML IV ONE (17:00)
[2017-05-24 17:23] LABS: Basophils # 0.1 10*3/uL (0.0-0.2); Basophils % 0.5 % (0.0-0.8); Eosinophils # 0.4 10*3/uL (0.0-0.87); Eosinophils % 1.3 % (0.00-10.9); Hematocrit 33.5 VOL% (35.7-47.0); Hemoglobin 10.7 GM/DL (12.0-16.0); Immature Granulocytes % 6.6 %; Immature Granulocytes Absolute 1.73 #; Lymphocytes # 2.2 10*3/uL (1.4-4.0); Lymphocytes % 8.3 % (21.3-54.2); Mean Corpuscular HGB Conc 31.9 GM/DL (32-36); Mean Corpuscular Hemoglobin 26 PG (27-34); Mean Corpuscular Volume 82.1 FL (87-102); Monocytes # 1.7 10*3/uL (0.11-0.8); Monocytes % 6.4 % (1.7-12.7); NRBC # 0.22 10*3/uL; Neutrophils % 76.9 % (38.7-73.9); Red Blood Count 4.08 MC/CUMM (3.8-5.5); Red Cell Distribution Width 18.1 % (9.3-17.3); White Blood Count 26.1 T/CUMM (4-12)
[2017-05-24 17:25] LABS: Platelet Count 74 T/CUMM (130-400)
[2017-05-24 17:34] LABS: PT Patient Result 10.8 SECS; Partial Thromboplastin Time 26.6 SECS (0-40)
[2017-05-24 17:46] LABS: Band Neutrophils 6 % (0-10); Eosinophils 1 % (0-10); Lymphocytes 8 % (20-55); Nucleated Red Blood Cells 1 (0-5); Platelet Estimate Decreased; Segmented Neutrophils 83 % (50-85)
[2017-05-24 17:47] LABS: Macrocytosis Slight; Total Cells Counted 100
[2017-05-24] MEDS ORDERED: HEPARIN 5,000 UNIT/1 ML VIAL IV ONE (17:56)
[2017-05-24] MEDS: AMINO ACIDS IV SCH (18:13)
[2017-05-24] MEDS: MULTIVITAMIN IV SCH (18:13)
[2017-05-24] MEDS: STERILE WATER IV SCH (18:13)
[2017-05-24] MEDS ORDERED: HEPARIN DRIP 25,000 UNITS/500 ML PREMIX IV SCH (18:30)
[2017-05-24] MEDS: VECURONIUM 100 MG in SODIUM CHLORIDE 0.9% 100 ML IV SCH (18:34)
[2017-05-24] MEDS: LEVOFLOXACIN INJ 750 MG in PREMIX 1 EACH IV SCH (18:38)
[2017-05-24] MEDS: fentaNYL INJ 1,250 MCG in SODIUM CHLORIDE 0.9% 225 ML IV SCH (19:00)
[2017-05-24 20:37] LABS: ABG Base Excess -2.3 MMOL/L (-2.5-2.5); ABG HCO3 22.4 MMOL/L (20-26); ABG Oxygen Saturation 95.5 % (95-100); ABG PCO2 41.7 MM HG (35-48); ABG PH 7.352 (7.35-7.45); ABG PO2 80.3 MM HG (80-95); ABG TCO2 21.5 MMOL/L (23-27); Allen Test Positive; Pt O2 Delivery Device Ventilator
[2017-05-25] MEDS: PROPOFOL 1,000 MG/100 ML BOTTLE IV SCH ×6 (00:13→15:05)
[2017-05-25] MEDS: fentaNYL INJ 1,250 MCG in SODIUM CHLORIDE 0.9% 225 ML IV SCH ×4 (01:12→21:31)
[2017-05-25] MEDS: ZINC OXIDE PASTE 113 GM TUBE TOP SCH ×2 (01:20→10:39)
[2017-05-25] MEDS: INSULIN REGULAR 100 UNIT/ML SUBCUT SCH ×4 (01:20→18:34)
[2017-05-25] MEDS: VECURONIUM 100 MG in SODIUM CHLORIDE 0.9% 100 ML IV SCH (02:31)
[2017-05-25 02:42] LABS: Allen Test Positive; Pt O2 Delivery Device Ventilator
[2017-05-25 02:44] LABS: ABG Base Excess -2.1 MMOL/L (-2.5-2.5); ABG HCO3 22.5 MMOL/L (20-26); ABG Oxygen Saturation 96.4 % (95-100); ABG PCO2 37.7 MM HG (35-48); ABG PH 7.394 (7.35-7.45); ABG PO2 88.7 MM HG (80-95); ABG TCO2 23.7 MMOL/L (23-27)
[2017-05-25 04:23] LABS: Basophils % 0.2 % (0.0-0.8); Eosinophils # 0.2 10*3/uL (0.0-0.87); Eosinophils % 1.7 % (0.00-10.9); Hematocrit 25.7 VOL% (35.7-47.0); Hemoglobin 8.5 GM/DL (12.0-16.0); Immature Granulocytes % 8.4 %; Immature Granulocytes Absolute 1.16 #; Lymphocytes # 0.9 10*3/uL (1.4-4.0); Lymphocytes % 6.6 % (21.3-54.2); Mean Corpuscular HGB Conc 33.1 GM/DL (32-36); Mean Corpuscular Hemoglobin 26 PG (27-34); Mean Corpuscular Volume 79.8 FL (87-102); Monocytes # 0.8 10*3/uL (0.11-0.8); Monocytes % 5.8 % (1.7-12.7); NRBC # 0.06 10*3/uL; Neutrophils # 10.7 10*3/uL (1.4-7.4); Neutrophils % 77.3 % (38.7-73.9); Red Blood Count 3.22 MC/CUMM (3.8-5.5); Red Cell Distribution Width 17.8 % (9.3-17.3); White Blood Count 13.9 T/CUMM (4-12)
[2017-05-25 04:45] LABS: Platelet Count 40 T/CUMM (130-400)
[2017-05-25 04:51] LABS: Calcium 7.6 MG/DL (8.5-10.1); Magnesium 1.9 MG/DL (1.8-2.4); Osmolality,Calculated 280.1 MOS/KG (273-304); Potassium 3.7 MMOL/L (3.5-5.1)
[2017-05-25 05:11] LABS: Phosphorous 5.7 MG/DL (2.5-4.9); Prealbumin 19.6 MG/DL (20-40)
[2017-05-25 05:58] LABS: Band Neutrophils 2 % (0-10); Eosinophils 1 % (0-10); Hypochromasia 1+; Lymphocytes 10 % (20-55); Microcytosis 1+; Myelocytes 1 %; Nucleated Red Blood Cells 1 (0-5); Segmented Neutrophils 82 % (50-85); Total Cells Counted 100
[2017-05-25 05:59] LABS: Platelet Estimate Decreased
[2017-05-25] MEDS: LEVOTHYROXINE 100 MCG VIAL IV SCH (06:00)
[2017-05-25] MEDS: methylPREDNISolone SOD SUC 40 MG/1 ML VIAL IV SCH ×3 (06:03→23:43)
[2017-05-25 06:21] LABS: INR 1.1; PT Patient Result 11.5 SECS; Partial Thromboplastin Time 30.1 SECS (0-40)
[2017-05-25] MEDS: FUROSEMIDE 40 MG/4 ML VIAL IV SCH ×2 (10:27→15:18)
[2017-05-25] MEDS: INSULIN GLARGINE 100 UNIT/ML SUBCUT SCH ×2 (10:28→23:34)
[2017-05-25] MEDS: PHENYLEPHRINE DRIP 40 MG/250 ML PREMIX IV SCH ×2 (13:42→15:56)
[2017-05-25] MEDS: CISATRACURIUM 200 MG in SODIUM CHLORIDE 0.9% 100 ML IV SCH ×3 (14:11→14:13)
[2017-05-25] MEDS ORDERED: NOREPINEPHRINE 4 MG/4 ML VIAL IV ONE (14:52)
[2017-05-25] MEDS: NOREPINEPHRINE 16 MG in SODIUM CHLORIDE 0.9% 234 ML IV SCH ×2 (15:00→22:32)
[2017-05-25] MEDS ORDERED: FUROSEMIDE 100 MG/10 ML VIAL ONE (15:15)
[2017-05-25] MEDS ORDERED: DOPamine 800 MG/250 ML PREMIX IV SCH (17:30)
[2017-05-25] MEDS: PHENYLEPHRINE INJ 160 MG in SODIUM CHLORIDE 0.9% 234 ML IV SCH (18:33)
[2017-05-25 19:10] LABS: HIT Interpretation Negative (Negative)
[2017-05-25] MEDS ORDERED: fentaNYL 100 MCG/2 ML VIAL IV ONE (19:55)
[2017-05-25] MEDS ORDERED: SODIUM CHLORIDE 0.9% 500 ML IV ONE (20:25)
[2017-05-25 20:44] LABS: INR 1.5; PT Patient Result 16.1 SECS
[2017-05-25] MEDS ORDERED: FAMOTIDINE IV SCH (21:00)
[2017-05-25] MEDS ORDERED: ARGATROBAN 250 MG/250 ML IV SCH (21:00)
[2017-05-25] MEDS: VASOPRESSIN 100 UNITS in SODIUM CHLORIDE 0.9% 95 ML IV SCH (21:30)
[2017-05-25] MEDS: MIDAZOLAM 100 MG in SODIUM CHLORIDE 0.9% 80 ML IV SCH (21:35)
[2017-05-26] MEDS: INSULIN REGULAR 100 UNIT/ML SUBCUT SCH ×2 (00:33→06:00)
[2017-05-26 00:37] LABS: INR 4.2
[2017-05-26] MEDS: MULTIVITAMIN IV SCH (00:43)
[2017-05-26] MEDS: AMINO ACIDS IV SCH (00:43)
[2017-05-26] MEDS: STERILE WATER IV SCH (00:43)
[2017-05-26 00:44] LABS: PT Patient Result 42.4 SECS; Partial Thromboplastin Time 87.9 SECS (0-40)
[2017-05-26] MEDS: NOREPINEPHRINE 16 MG in SODIUM CHLORIDE 0.9% 234 ML IV SCH ×2 (00:51→08:34)
[2017-05-26] MEDS: VASOPRESSIN 100 UNITS in SODIUM CHLORIDE 0.9% 95 ML IV SCH ×3 (01:31→06:11)
[2017-05-26] MEDS: PHENYLEPHRINE INJ 160 MG in SODIUM CHLORIDE 0.9% 234 ML IV SCH (01:32)
[2017-05-26 03:38] LABS: ABG Base Excess -19.4 MMOL/L (-2.5-2.5); ABG HCO3 11.6 MMOL/L (20-26); ABG PCO2 49.7 MM HG (35-48); ABG PO2 59.3 MM HG (80-95); ABG TCO2 13.1 MMOL/L (23-27); Allen Test Positive; Pt O2 Delivery Device Ventilator
[2017-05-26 03:44] LABS: Magnesium 2.1 MG/DL (1.8-2.4); Osmolality,Calculated 277.5 MOS/KG (273-304)
[2017-05-26 03:48] LABS: Partial Thromboplastin Time 102.9 SECS (0-40)
[2017-05-26 03:50] LABS: PT Patient Result 62.2 SECS
[2017-05-26 03:52] LABS: INR 6.3
[2017-05-26] MEDS: fentaNYL INJ 1,250 MCG in SODIUM CHLORIDE 0.9% 225 ML IV SCH ×2 (03:54→03:56)
[2017-05-26] MEDS: ZINC OXIDE PASTE 113 GM TUBE TOP SCH ×2 (03:56→08:36)
[2017-05-26 04:05] LABS: Basophils # 0.1 10*3/uL (0.0-0.2); Basophils % 0.3 % (0.0-0.8); Eosinophils # 0.1 10*3/uL (0.0-0.87); Eosinophils % 0.2 % (0.00-10.9); Hemoglobin 10.2 GM/DL (12.0-16.0); Immature Granulocytes % 11.8 %; Immature Granulocytes Absolute 4.75 #; Lymphocytes # 1.8 10*3/uL (1.4-4.0); Lymphocytes % 4.5 % (21.3-54.2); Mean Corpuscular Hemoglobin 27 PG (27-34); Mean Corpuscular Volume 88.5 FL (87-102); Monocytes # 3.1 10*3/uL (0.11-0.8); Monocytes % 7.6 % (1.7-12.7); NRBC # 1.61 10*3/uL; Neutrophils # 30.5 10*3/uL (1.4-7.4); Neutrophils % 75.6 % (38.7-73.9); Red Blood Count 3.84 MC/CUMM (3.8-5.5); Red Cell Distribution Width 19.1 % (9.3-17.3)
[2017-05-26 04:07] LABS: ABG PH 6.986 (7.35-7.45)
[2017-05-26 04:17] LABS: Platelet Count 111 T/CUMM (130-400)
[2017-05-26 04:19] LABS: White Blood Count 40.3 T/CUMM (4-12)
[2017-05-26] MEDS ORDERED: SODIUM BICARBONATE 50 MEQ/50 ML SYRINGE IV ONE ×5 (04:31→09:19)
[2017-05-26] MEDS ORDERED: DEXTROSE 5% NACL 0.9% 1,000 ML IV SCH (05:00)
[2017-05-26] MEDS ORDERED: SODIUM BICARB INJ 150 MEQ in STERILE WATER INJ 850 ML IV SCH (05:00)
[2017-05-26] MEDS ORDERED: INSULIN REGULAR DRIP 100 ML IV SCH (05:00)
[2017-05-26 05:29] LABS: Calcium 7.4 MG/DL (8.5-10.1); Magnesium 2.1 MG/DL (1.8-2.4); Osmolality,Calculated 282.1 MOS/KG (273-304); Potassium 5.8 MMOL/L (3.5-5.1)
[2017-05-26 05:47] LABS: Albumin 1.5 G/DL (3.4-5.0); Bilirubin,Total 1.8 MG/DL (0.2-1.0); Calcium 7.5 MG/DL (8.5-10.1); Osmolality,Calculated 285.8 MOS/KG (273-304); Potassium 5.8 MMOL/L (3.5-5.1); Total Protein 4.5 G/DL (6.4-8.3)
[2017-05-26] MEDS: methylPREDNISolone SOD SUC 40 MG/1 ML VIAL IV SCH (06:29)
[2017-05-26] MEDS: LEVOTHYROXINE 100 MCG VIAL IV SCH (06:32)
[2017-05-26 06:51] LABS: Partial Thromboplastin Time 96.6 SECS (0-40)
[2017-05-26 06:52] LABS: INR 5.4
[2017-05-26 07:00] LABS: Band Neutrophils 8 % (0-10); Burr Cells Slight; Giant Platelets Few; Hypochromasia 1+; Lymphocytes 9 % (20-55); Myelocytes 2 %; Nucleated Red Blood Cells 5 (0-5); Platelet Estimate Decreased; Segmented Neutrophils 76 % (50-85); Total Cells Counted 100
[2017-05-26 07:01] LABS: Microcytosis 1+
[2017-05-26] MEDS: MIDAZOLAM 100 MG in SODIUM CHLORIDE 0.9% 80 ML IV SCH (07:16)
[2017-05-26] MEDS ORDERED: DORNASE ALFA 2.5 MG/2.5 ML VIAL RESP TX SCH (07:30)
[2017-05-26 07:42] LABS: PT Patient Result 53.4 SECS
[2017-05-26 07:44] LABS: INR 5.4; Partial Thromboplastin Time 109.1 SECS (0-40)
[2017-05-26 08:40] LABS: ABG Base Excess -22.4 MMOL/L (-2.5-2.5); ABG HCO3 7.9 MMOL/L (20-26); ABG Oxygen Saturation 78.9 % (95-100); ABG PCO2 47.2 MM HG (35-48); ABG PO2 67.1 MM HG (80-95); ABG TCO2 9.7 MMOL/L (23-27); Pt O2 Delivery Device Ventilator
[2017-05-26] MEDS: FUROSEMIDE 40 MG/4 ML VIAL IV SCH (08:45)
[2017-05-26 08:48] LABS: ABG PH 6.904 (7.35-7.45)
[2017-05-26 09:47] LABS: Magnesium 2.3 MG/DL (1.8-2.4); Osmolality,Calculated 283.4 MOS/KG (273-304); Potassium 7.5 MMOL/L (3.5-5.1)
[2017-05-26 09:49] LABS: Calcium 7.3 MG/DL (8.5-10.1)
[2017-05-26 09:51] LABS: Partial Thromboplastin Time 130.2 SECS (0-40)
[2017-05-26 11:38] VITALS: BP 124/69
== END 2017-05-26 09:45 | disposition expired | DRG 207 ==
LOC: N.CC 13:05 → SUATTDRO 13:05
PROVIDERS: ADMIT Internal Medicine; ATTEND Internal Medicine Infectious Disease